=== PATIENT | female | born 1970 | race American Indian/Alaskan Native ===

== ENCOUNTER 2020-08-09 09:29 | Outpatient (CLI) | payer OTHER | END 2020-08-09 09:30 | disposition home or self-care (01) | LOC: MAMMO 09:29 → SPVWC 09:30 | PROVIDERS: ATTEND Advanced Practice Midwife | DX: Z12.31 Encounter for screening mammogram for malignant neoplasm of breast (principal) | CPT/HCPCS: 77067 ==